=== PATIENT | male | born 1985 | race Asian ===

== ENCOUNTER 2020-02-21 01:29 | Emergency (ER) | payer SELFPAY ==
[2020-02-21 02:12] LABS: Mean Corpuscular HGB CONC 31.7 g/dL (32.0-36.0); Mean Corpuscular Hemoglobin 23.6 pg (27.0-31.0); Mean Corpuscular Volume 74.4 fL (78.0-98.0); RBC Distribution Width 11.7 % (11.5-14.5)
[2020-02-21 02:27] LABS: #Basophils 0.1 thou/uL (0.0-0.2); #Eosinphils 0.1 thou/uL (0.0-0.7); #Lymphocytes 2.8 thou/uL (1.20-3.40); #Monocytes 0.5 thou/uL (0.11-0.59); #Neutrophils 9.6 thou/uL (1.40-6.50); %Eosinophils 0.9 % (0.0-10.0); %Lymphocytes 21.1 % (21.0-51.0); %Monocytes 3.4 % (0.0-10.0); %Neutrophils 73.5 % (42.0-75.0); MDiff Complete? YES; Microcytosis SLIGHT = 6-15 cells (100X) (0-5/hpf); Platelet Morphology Comment Appears Adequate
[2020-02-21 02:28] LABS: Amphetamine Not Detected (NotDetected); Barbiturates Screen Not Detected (NotDetected); Benzodiazepine Screen Not Detected (NotDetected); Cocaine Metabolite Screen Not Detected (NotDetected); Methadone Not Detected (NotDetected); Methamphetamine Not Detected (NotDetected); Opiate Screen Not Detected (NotDetected); Oxycodone Screen Not Detected (NotDetected); Phencyclidine (PCP) Not Detected (NotDetected); THC/Cannabinoid Screen Not Detected (NotDetected); Tricyclic Screen Not Detected (NotDetected)
[2020-02-21 02:29] LABS: Medtox Control Line Valid? VALID (VALID)
[2020-02-21 02:36] LABS: Acetaminophen Less than 6.0 mcg/mL (10.0-30.0); Alcohol 214 mg/dL (Less than 10); Salicylate Less than 8.0 mg/dL (15.0-30.0)
[2020-02-21 02:38] LABS: ALT (SGPT) 31 U/L (8-55); AST (SGOT) 19 U/L (5-34); Albumin 3.9 g/dL (3.5-5.0); Alcohol 214 mg/dL (Less than 10); Alkaline Phosphatase 76 U/L (40-110); Anion Gap 18 mmol/L (10-20); BUN (Urea Nitrogen) 11 mg/dL (8.9-20.6); Bilirubin, Total 0.3 mg/dL (0.2-1.2); Calc. Creatinine Clearance 0 mL/min (70-130); Calcium 7.8 mg/dL (7.8-10.44); Carbon Dioxide 20 mmol/L (22-29); Chloride 111 mmol/L (98-107); Estimated GFR-MDRD Greater than 90; Globulin 2.5 g/dL (2.4-3.5); Glucose 112 mg/dL (70-105); Potassium 3.8 mmol/L (3.5-5.1); Protein, Total 6.4 g/dL (6.0-8.3); Sodium 145 mmol/L (136-145)
[2020-02-21 02:39] LABS: Hemoglobin 11.9 g/dL (14.0-18.0); Mean Platelet Volume 7.5 fL (7.4-10.4); Platelet Count 330 thou/uL (130-400); Red Blood Cell (RBC) Count 5.05 mill/uL (4.70-6.10); White Blood Cell (WBC) Count 13.2 thou/uL (4.8-10.8)
[2020-02-21 06:00] LABS: Hemoglobin 13.4 g/dL (14.0-18.0); Mean Corpuscular HGB CONC 30.9 g/dL (32.0-36.0); Mean Corpuscular Hemoglobin 23.1 pg (27.0-31.0); Mean Platelet Volume 7.5 fL (7.4-10.4); Platelet Count 357 thou/uL (130-400); RBC Distribution Width 12.1 % (11.5-14.5); Red Blood Cell (RBC) Count 5.79 mill/uL (4.70-6.10); White Blood Cell (WBC) Count 15.9 thou/uL (4.8-10.8)
[2020-02-21 06:21] LABS: #Basophils 0.1 thou/uL (0.0-0.2); #Lymphocytes 2.9 thou/uL (1.20-3.40); #Monocytes 0.4 thou/uL (0.11-0.59); #Neutrophils 12.6 thou/uL (1.40-6.50); %Basophils 0.6 % (0.0-1.0); %Eosinophils 0.1 % (0.0-10.0); %Lymphocytes 17.9 % (21.0-51.0); %Monocytes 2.2 % (0.0-10.0); %Neutrophils 79.1 % (42.0-75.0); MDiff Complete? YES; Microcytosis SLIGHT = 6-15 cells (100X) (0-5/hpf); Platelet Morphology Comment Appears Adequate
--- NOTE | 2020-02-21 08:51 | RAD ---
Exam: Chest one view HISTORY:EtOH. Emesis. Comparison: None FINDINGS: Cardiac silhouette:Magnified due to portable technique Aorta: Unremarkable Pulmonary vessels: Normal Costophrenic angles: Clear LUNGS: Diminished lung volumes with resultant accentuation of the pulmonary interstitium. Pneumothorax: None Osseous abnormalities: None IMPRESSION: Diminished lung volumes. Resultant accentuation pulmonary interstitium. No definite acute pulmonary process.
--- NOTE | 2020-02-21 10:35 | RAD ---
TWO VIES CHEST: DATE: 02/21/2020. PROVIDED CLINICAL HISTORY: Leukocytosis. FINDINGS: Comparison is made with the examination performed earlier same date. Cardiac and mediastinal silhoue tte is within normal limits. No focal consolidation, pleural fluid, or pneumothorax apparent. IMPRESSION: No evidence for an acute cardiopulmonary process. POS: [facility]
== END 2020-02-21 08:05 | disposition home or self-care (01) ==
LOC: MADERS 01:29
DX: F10.129 Alcohol abuse with intoxication, unspecified (principal); D72.829 Elevated white blood cell count, unspecified
CPT/HCPCS: 51701; 71045; 71046; 80053; 80306; 80307; 85025